=== PATIENT | male | born 1955 | race Caucasian/White ===

== ENCOUNTER 2016-06-18 12:28 | Emergency (ER) | payer OTHER ==
[~2016-06-18] VITALS: Ht 185.4 cm; Wt 117.0 kg
[~2016-06-18 12:28] MED LIST: ALPH1CAP PO; ASPCH81X PO; ATV5X PO; B-CO1CAP3 PO; KETO2SHA5 TOP; LACTCAP3 PO; MAGN1TAB41 PO; MISC1CAP60 PO; MULTCAP45 PO; NTRGSL/4 UT; NYSCR15 EXT; OMEG10007 PO; OYST500T47 PO; VITACAP PO; ZINC30TA3 PO
[2016-06-18 12:31] VITALS: TEMP 36.9; Ht 185.4 cm; Wt 117.0 kg
[2016-06-18] MEDS ORDERED: NYSCR30 EXT (12:44)
[2016-06-18] MEDS ORDERED: MULT-980 (12:44)
[2016-06-18] MEDS ORDERED: LISI-461 PO (12:46)
[2016-06-18] MEDS ORDERED: PNC/500 PO (12:46)
[2016-06-18] MEDS ORDERED: LPT10 PO (12:46)
[2016-06-18] MEDS ORDERED: HYDR-5688 PO (13:03)
[2016-06-18] MEDS ORDERED: HYDROCODONE/ACETAMOPHEN 5/325MG TAB PO ONE (13:15)
[2016-06-18 13:35] VITALS: BP 217/118; PULSE 98; O2SAT 99
--- NOTE | 2016-06-18 21:10 | EMERGENCY ROOM VISIT NOTE ---
ED Visit Note First contact with patient: 12:39 CHIEF COMPLAINT: Left upper Dental pain HISTORY OF PRESENT ILLNESS: This 60-year-old white male patient has had a progressive toothache for 3 days. He denies any trauma. The pain is now steady and severe and radiates to the left cheek. He has been unable to see a dentist. Denies facial swelling, chills, sweats, or fever. No nausea or vomiting. No foul taste. Pain is 7/10. Patient states he was not able to start a penicillin prescription in time, and the pain got ahead of him. He states this has happened before. He usually uses Vicodin 7 mg tablets and cuts them in half, which she states is sufficient. He states the hydrocodone 5 mg tablets are to strong and he must cut them in half as well. He states he fashioned a zinc oxide plug and stuffed up in the decaying tooth to help treat the infection. He is concerned that he is becoming septic due to the amount of pain he is developing. REVIEW OF SYSTEMS: Head: No headache, injury or neck pain. Throat: No sore throat, dysphagia, or hoarseness. Neck: No stiffness, or swelling. Respiratory: No cough, change in sputum, wheezes, hemoptysis, shortness of breath, or stridor. PMH: Supplemental sheet was not completed. Previous Surgeries: Unknown Medical history: Significant for heart disease, anxiety, hypertension, elevated cholesterol, and dental disease. Family history: Noncontributory. Current medications: Extensive list reviewed and filed in patient's chart Allergies: Amoxicillin. He does fine with penicillin. SOCIAL HISTORY: Patient lives at home. Unemployed. No EtOH use. Single. PHYSICAL EXAM: Vital Signs: Temperature 36.9 pulse 97 BP 190/105 respirations 18. General: Well-developed, well-nourished, middle-aged white male, in no acute distress. He appears in some discomfort. He is sitting on a bed. Alert and oriented. Skin: Warm and dry with good turgor. No rashes or lesions. No ecchymosis or erythema. The patient is not diaphoretic. No abrasions. HEENT : Normocephalic atraumatic. Eyes PERRLA, EOMI. No conjunctiva or scleral injection. Nares patent bilaterally without turbinate enlargement. No significant drainage. No epistaxis. Oropharynx without erythema or exudate. Uvula midline, oral mucosa moist. No lesions present. Overall poor dentition. Multiple decayed teeth. The tooth in question, #14, is decayed and the gum tissue is tender around it. He currently has a self fashioned zinc oxide plug covering the tooth. No edema or pointing. It is nonfluctuant. Remainder of the tooth is not loose. There is no facial swelling, cervical or submandibular lymphadenopathy. DIAGNOSIS: Odontalgia. Dental decay. DISCHARGE INSTRUCTIONS & TREATMENT: The patient was educated regarding today's findings. Conservative care measures were discussed. He was prescribed [place] 5mg every 6 hours if needed for pain. Driving precautions were given. Patient requested a dose in the ED. He was given one tablet. He did request Vicodin 7 mg tablets. I informed him that I would only give him hydrocodone 5 mg tablets. These should be sufficient. Supplement with ibuprofen every 6 hours. He or he has a prescription for penicillin. He has 10 days worth. He requested an additional prescription that he may use in the future if this should happen again. I declined to give that to him, stating that he would need to be evaluated by his PCP, dentist, or the ED and that he should not self treat. Continue his Penicillin V, 500 mg 4 times a day for 10 days. See a dentist as soon as possible for definitive care. Saltwater gargles after every meal. Use Orajel or oil of clove for breakthrough pain. He should see his PCP to have his blood pressure rechecked this week. Elevation may be due to pain, but this should be evaluated. He was reassured that I do not suspect sepsis nor facial abscess. Problem List Medical Problems: (1) DEPRESSIVE DISORDER NEC Status: Resolved (2) DYSTHYMIC DISORDER Status: Resolved (3) HEADACHE Status: Resolved (4) HYPERTENSION NOS Status: Resolved Current/Historical Medications Scheduled Alpha-Lipoic Acid (Thioctic Ac (Alpha-Lipoic Acid), 600 MG PO DAILY Aspirin (Aspirin Chewable), 162 MG PO DAILY Atorvastatin (Atorvastatin Calcium), 2.5 MG PO DAILY B-Complex Vitamins (B Complex), 1 TAB PO 6XWK Fish Oil (Rochelle-3), 1 CAP PO DAILY Ketoconazole (Topical) (Nizoral), 1 APPLN TOP WK Lactobacillus (Acidophilus), 1 CAP PO 6XWK Lisinopril (Lisinopril), 2.5 MG PO DAILY Magnesium Oxide (Magnesium), Unknown Dose PO 6XWK Misc Natural Products (Saw [place]), 2 CAP PO 6XWK Nitroglycerin (Nitrostat), 0.4 MG UT PRN Oyster Shell (Calcium), 1,000 MG PO 6XWK Penicillin V Potassium (Penicillin V Potassium), 500 MG PO QID Vitamins C & E (Vitamin C & E Combination), 1 CAP PO 6XWK Zinc Gluconate (Zinc), Unknown Dose PO 6XWK Scheduled PRN Hydrocodone/Acetaminophen 5MG/325MG ([place] 5MG/325MG), 1-2 TABLET PO Q6H PRN for Pain Lorazepam (Lorazepam), 0.5 MG PO TID PRN for Anxiety Miscellaneous Medications Nystatin (Nystatin Cream), 0 EXT Allergies Coded Allergies: Amoxicillin (Verified Adverse Reaction, Unknown, MODIFORM REACTION, ) Vital Signs Date Time Temp Pulse Resp B/P Pulse Ox O2 Delivery O2 Flow Rate FiO2 06/18/16 13:35 98 18 217/118 99 06/18/16 12:31 36.9 97 18 190/105 99 Room Air Medications Administered Medications (Trade) Dose Ordered Sig/Law Route Start Time Stop Time Status Last Admin Dose Admin Acetaminophen/ Hydrocodone Bitart ([place] 5/325 Tab) 1 tab ONE ONCE PO 06/18/16 13:15 06/18/16 13:16 DC 06/18/16 13:31 1 TAB Departure Information Impression Primary Impression: Dental decay Additional Impression: Odontalgia Dispostion Home / Self-Care Condition GOOD Prescriptions Hydrocodone/Acetaminophen 5MG/325MG ([place] 5MG/325MG) Tab 1-2 TABLET PO Q6H Y for Pain, #12 TAB For Initial Treatment Prov: Adán Hodge,P.A. 06/18/16 Referrals [facility] No Doctor, Assigned (PCP) Forms HOME CARE DOCUMENTATION FORM, SPECIAL NARCOTICS INSTRUCTIONS, MOTRIN USE, IMPORTANT VISIT INFORMATION Patient Instructions [facility] Additional Instructions Follow-up with [facility] for further dental care, or see a community dentist Continue on your penicillin 4 times a day [place] 1 to 2 tablets every 6 hours as needed for severe pain-no driving Continue with saltwater or mouthwash gargles daily Problem Qualifiers
== END 2016-06-18 13:35 | disposition home or self-care (01) ==
LOC: C.EDB 12:29 → C.EDD 13:35
DX: K02.9 Dental caries, unspecified (principal); I10 Essential (primary) hypertension